=== PATIENT | male | born 1985 | race Hispanic/Latino ===

== ENCOUNTER 2018-10-24 09:08 | Emergency (ER) | payer OTHER ==
[2018-10-24] MEDS ORDERED: DIPHENHYDRAMINE HCL 25 MG CAPSULE ONE (09:36)
[2018-10-24] MEDS ORDERED: IBUPROFEN 400 MG TABLET ONE (09:36)
== END 2018-10-24 10:02 | disposition home or self-care (01) ==
LOC: EDH 09:08
DX: H10.9 Unspecified conjunctivitis (principal)
CPT/HCPCS: 99283; Q0163